=== PATIENT | male | born 1945 | race Caucasian/White ===

== ENCOUNTER → 2018-02-25 | Outpatient (CLI) | payer MEDICARE, BC ==
[~2018-02-25] MED LIST: ACET325T38 PO; AGM875T PO; AML2.5T PO; AMLO2.5T PO; CIPR-226 PO; CIPR500T4 PO; CIPR500T78 PO; DXCC100CRX; HYDR-3720 PO; HYDR-3876 PO; HYOS0.1216 PO; HYOS0.1217 PO; ONDA8TAB13 PO; OXYC-12 PO; PHEN-640 PO; PHEN200T27 PO; TMSL.4C PO; WRF2.5T; WRF2.5T PO
--- NOTE | 2018-02-25 13:20 | Diagnostic Imaging Report ---
INDICATION: Right leg pain. Right leg venous Doppler study was performed in the routine fashion with color flow Doppler and waveform analysis. FINDINGS: The right common femoral vein, superficial femoral vein, popliteal vein and visualized portion of the tibial veins show normal compressibility and venous flow patterns. There is normal augmentation. IMPRESSION: No evidence of deep vein thrombosis of the major veins of the right leg. Dictated by: Dictated on workstation # [id number]
== END ==
LOC: RAD 12:16
PROVIDERS: ATTEND Orthopaedic Surgery
DX: M79.661 Pain in right lower leg (principal)

== ENCOUNTER → 2018-03-02 | Outpatient (CLI) | payer MEDICARE, BC ==
--- NOTE | 2018-03-02 09:37 | Diagnostic Imaging Report ---
PROCEDURE: MRI right joint lower extremity without contrast. TECHNIQUE: Multiplanar, multisequence MR imaging of the right knee was performed without contrast. COMPARISON: None available. INDICATION: Right knee pain and swelling. FINDINGS: MENISCI Medial meniscus: Complex macerated tearing of the body and posterior horn of the medial meniscus. This includes a near-complete radial tearing at the junction of the body and posterior horn. The body of the medial meniscus is partially extruded into the gutter. Lateral meniscus: Degenerative free-edge truncation and tearing in the posterior horn of the lateral meniscus is seen. LIGAMENTS ACL: Intrasubstance mucoid degeneration of the ACL with partial-thickness tearing of the anterior insertional fibers. PCL: Intact. MCL: Intact. LCL: The lateral collateral ligamentous complex is intact. EXTENSOR MECHANISM The extensor mechanism is intact. CARTILAGE Medial compartment: Diffuse high-grade partial and full-thickness articular cartilage loss throughout the weightbearing aspect of the medial femoral condyle and opposing tibial plateau. There are scattered foci of subchondral bone marrow edema present. Lateral compartment: The lateral compartment articular cartilage is preserved without high-grade chondromalacia. Patellofemoral compartment: Partial-thickness fraying of the surface of the patella articular cartilage. BONE No fracture, stress fracture or osteonecrosis. SOFT TISSUE Small knee joint effusion with mild synovitis. A small Tafoya's cyst is also present. IMPRESSION: 1. Extensive complex tearing of the medial meniscus is likely degenerative in nature. 2. There is a broad area of high-grade partial and full-thickness articular cartilage loss throughout the medial compartment. 3. Focal degenerative free-edge truncation in the posterior horn of the lateral meniscus. 4. Intrasubstance mucoid degeneration with partial-thickness tearing of the anterior ACL. Dictated by: Dictated on workstation # [id number]
== END ==
LOC: RAD 07:10
PROVIDERS: ATTEND Nurse Practitioner Family
DX: S83.241A Other tear of medial meniscus, current injury, right knee, initial encounter (principal); S83.511A Sprain of anterior cruciate ligament of right knee, initial encounter; M17.11 Unilateral primary osteoarthritis, right knee
CPT/HCPCS: 73721

== ENCOUNTER 2019-03-03 05:51 | Outpatient (CLI) | payer MEDICARE, BC ==
[~2019-03-03] VITALS: Ht 180.3 cm; Wt 84.8 kg
[~2019-03-03 05:51] MED LIST changes: -AMLO2.5T PO; +AMLO2.5T4 PO
[2019-03-03] MEDS ORDERED: FINA5TAB6 PO (14:46)
== END 2019-03-03 14:48 | disposition home or self-care (01) ==
LOC: PREOP 05:51
PROVIDERS: ATTEND Surgery
DX: Z01.818 Encounter for other preprocedural examination (principal)

== ENCOUNTER → 2022-12-02 | Outpatient (CLI) | payer MEDICARE, BC ==
[~2022-12-02] MED LIST changes: +CATHETER FLUSH 10 ML SYR IVP PRN; +FINA5TAB6 PO
--- NOTE | 2022-12-03 13:49 | Diagnostic Imaging Report ---
INDICATION: Prostate carcinoma, initial staging. Patient was administered 9.8 mCi F-18 Pylarify intravenously in the left antecubital location and PET imaging was performed from the top of skull to mid thighs. Noncontrast CT was also performed for attenuation correction and anatomic correlation. Normal physiologic uptake is identified within the salivary glands as well as the liver and spleen as well as the gastrointestinal and genitourinary tract. No definite uptake is seen within thoracic, abdominal or pelvic lymph nodes. There is a small focus of abnormal uptake involving the anterior left para-midline aspect of the prostate gland. No suspicious osseous uptake is identified. Conventional CT demonstrates bilateral renal cysts. There is an IVC filter in place. There is uncomplicated sigmoid diverticulosis. IMPRESSION: Unremarkable PET Pylarify demonstrates abnormal solitary focus of uptake involving the left para-midline and anterior aspect of the prostate gland, suggestive of prostate neoplasm. No other areas of suspicious uptake are identified. There are no findings to suggest metastatic disease. Dictated by: Dictated on workstation # [id number]
== END ==
LOC: RAD 08:20
PROVIDERS: ATTEND Specialist
DX: C61 Malignant neoplasm of prostate (principal)
CPT/HCPCS: 78815; A9595

== ENCOUNTER 2022-12-16 12:36 | Outpatient (RCR) | payer MEDICARE, BC ==
[~2022-12-16 12:36] MED LIST changes: -CATHETER FLUSH 10 ML SYR IVP PRN
== END 2023-01-08 | disposition home or self-care (01) ==
LOC: ONC 12:36
PROVIDERS: ATTEND Radiology Radiation Oncology
DX: C61 Malignant neoplasm of prostate (principal); I10 Essential (primary) hypertension; Z90.49 Acquired absence of other specified parts of digestive tract; Z98.890 Other specified postprocedural states
CPT/HCPCS: 99205; 99215

== ENCOUNTER 2023-03-25 10:24 | Outpatient (RCR) | payer MEDICARE, BC | END 2023-04-10 | disposition home or self-care (01) | LOC: ONC 10:24 | PROVIDERS: ATTEND Radiology Radiation Oncology | DX: C61 Malignant neoplasm of prostate (principal); I10 Essential (primary) hypertension; K21.9 Gastro-esophageal reflux disease without esophagitis | CPT/HCPCS: 76873; G0463; 99212 ==

== ENCOUNTER 2023-04-16 05:28 | Outpatient (CLI) | payer MEDICARE, BC ==
[~2023-04-16] VITALS: Ht 180.3 cm; Wt 90.9 kg
[2023-04-18] MEDS ORDERED: OMEP20CA18 PO (12:51)
[2023-04-18] MEDS ORDERED: IRON1TAB89 PO (12:56)
[2023-04-18] MEDS ORDERED: ZINC10LO4 PO (12:56)
[2023-04-18] MEDS ORDERED: CYAN1TAB68 PO (12:56)
== END 2023-04-18 13:12 | disposition home or self-care (01) ==
LOC: PREOP 05:28
PROVIDERS: ATTEND Radiology Radiation Oncology
DX: Z01.818 Encounter for other preprocedural examination (principal)

== ENCOUNTER 2023-04-23 08:39 | Day surgery (SDC) | payer MEDICARE, BC ==
[2023-04-23] VITALS (11 sets, daily range): BP systolic 95–156; BP diastolic 62–104
[~2023-04-23] VITALS: Ht 180.3 cm; Wt 90.9 kg
[~2023-04-23 08:39] MED LIST changes: +CYAN1TAB68 PO; +IRON1TAB89 PO; +OMEP20CA18 PO; +ZINC10LO4 PO
--- NOTE | 2023-04-23 09:32 | Progress Note-Pre Operative ---
Pre-Operative Progress Note Date of Available H&P: Apr 08, 2023 Date H&P Reviewed: Apr 23, 2023 Time H&P Reviewed: 09:31 History & Physical: H&P Reviewed, No changes noted Pre-Operative Diagnosis: Prostate cancer cT1c, PSA 9 (on Proscar), Graeme 8 (4+4) LEIGH AMAYA MD Apr 23, 2023 09:32
[2023-04-23] MEDS ORDERED: ACET-11 PO (09:35)
[2023-04-23] MEDS ORDERED: CIPR-226 PO (09:35)
[2023-04-23] MEDS: LACTATED RINGERS 1,000 ML 1,000 ML IV PRN ×2 (09:37→11:40)
--- NOTE | 2023-04-23 09:38 | Discharge Inst-Simple/Standard ---
Discharge Inst-Standard Reconcile Patient Problems Problems Reviewed?: Yes Discharge Medications New, Converted or Re-Newed RX: Other (scripts called in 04/22/23 per [facility]) Patient Instructions/Follow Up Plan of Care/Instructions/FU: 1) To [facility] on Friday04/28/23 after 8 a.m. for choudhury removal. 2) One month post implant scan at [facility] 05/21/23 at 9:30 a.m. 3) One month post implant follow up with Dr. Frost 05/26/23 at 1:45 p.m. Activity as Tolerated: Yes Discharge Diet: No Restrictions Other Inst to Patient Please instruct patient on choudhury catheter care. He will come to [facility] on Friday04/28/23 after 8 a.m. for choudhury removal. LEIGH AMAYA MD Apr 23, 2023 09:38
[2023-04-23] MEDS ORDERED: FAMOTIDINE INJ 20MG/2ML VIAL ONE (09:49)
[2023-04-23] MEDS ORDERED: ONDANSETRON INJECTION 4 MG/2 ML (SDV) ONE ×2 (09:49→10:33)
[2023-04-23] MEDS ORDERED: ONDANSETRON INJECTION 4 MG/2 ML (SDV) IVP ONE (10:00)
[2023-04-23] MEDS ORDERED: FAMOTIDINE INJ 20MG/2ML VIAL IVP ONE (10:00)
[2023-04-23] MEDS ORDERED: fentaNYL INJECTION 100 MCG/2 ML VIAL ONE (10:33)
[2023-04-23] MEDS ORDERED: SEVOFLURANE (ULTANE) 15 ML INHAL SOLN ONE ×2 (10:33→11:49)
[2023-04-23] MEDS ORDERED: LIDOCAINE PF 2% 5 ML VIAL ONE (10:33)
[2023-04-23] MEDS ORDERED: proPOfol INJECTION 200 MG/20 ML VIAL IV ONE (10:33)
[2023-04-23] MEDS ORDERED: MIDAZOLAM INJ 2 MG/2 ML VIAL ONE (10:33)
[2023-04-23] MEDS ORDERED: GLYCOPYRROLATE INJ 0.2 MG/ML 2 ML VIAL ONE (11:16)
[2023-04-23] MEDS ORDERED: BACITRACIN OINTMENT 28 GM TUBE ONE (11:20)
[2023-04-23] MEDS ORDERED: BACITRACIN OINTMENT 28 GM TUBE TOP ONE (11:21)
--- NOTE | 2023-04-23 12:18 | Progress Note-Post Operative ---
Post-Operative Progess Note Surgeon (s)/Drafter Refrigeration (s) Surgeon LEIGH AMAYA MD Drafter Refrigeration: Valerie SAUCEDO MD Pre-Operative Diagnosis Prostate cancer cT1c, PSA 9 (on Proscar), Graeme 8 (4+4) Post-Operative Diagnosis Same as pre-op Procedure & Operative Findings Date of Procedure 04/23/23 Procedure Performed/Findings (1) 67% Cesium 131 permanent prostate seed implant (2) Injection of biodegradable prostate-rectal spacer utilizing the Barrigel system (3) Cystogram Prostate volume 24.7 cc Anesthesia Type General Estimated Blood Loss Estimated blood loss (mL): Minimal Specimens/Packing Specimens Removed N/A Packing: N/A LEIGH AMAYA MD Apr 23, 2023 12:18
--- NOTE | 2023-04-23 12:21 | Anesthesia-General Post-Op ---
General Patient Condition Mental Status/LOC: Same as Preop Cardiovascular: Satisfactory Nausea/Vomiting: Absent Respiratory: Satisfactory Pain: Controlled Complications: Absent Post Op Complications Complications None Follow Up Care/Instructions Patient Instructions None needed. Anesthesia/Patient Condition Patient Condition Patient is doing well, no complaints, stable vital signs, no apparent adverse anesthesia problems. No complications reported per nursing. DARON MIRZA CRNA Apr 23, 2023 12:20
[2023-04-23] MEDS ORDERED: ONDANSETRON INJECTION 4 MG/2 ML (SDV) IVP PRN (12:30)
[2023-04-23] MEDS ORDERED: morphine INJ 10 MG/ML 1ML (SYR OR VIAL) IVP ONE (12:30)
[2023-04-23] MEDS ORDERED: fentaNYL INJECTION 100 MCG/2 ML VIAL IVP ONE (12:30)
--- NOTE | 2023-04-24 09:47 | Diagnostic Imaging Report ---
INDICATION: Brachytherapy and cystography. Nine seconds of fluoroscopy time were utilized during the urological procedure with a total cumulative dose of 5.9 mGy. IMPRESSION: Fluoroscopy utilized during urological procedures. Dictated by: Dictated on workstation # [id number]
== END 2023-04-23 14:58 | disposition home or self-care (01) ==
LOC: SDC 08:39
PROVIDERS: ATTEND Radiology Radiation Oncology
DX: C61 Malignant neoplasm of prostate (principal)
CPT/HCPCS: 55874; 55876; 76000; 76965; 77290; 77318; 77332; 77370; 77470; 77778; 87081; C1715 ×2; C1889; C2643

== ENCOUNTER 2023-05-21 09:21 | Outpatient (RCR) | payer MEDICARE, BC ==
[~2023-05-21 09:21] MED LIST changes: +ACET-11 PO
== END 2023-06-10 | disposition home or self-care (01) ==
LOC: ONC 09:21
PROVIDERS: ATTEND Radiology Radiation Oncology
DX: C61 Malignant neoplasm of prostate (principal); I10 Essential (primary) hypertension; K21.9 Gastro-esophageal reflux disease without esophagitis
CPT/HCPCS: 77290

== ENCOUNTER → 2023-07-08 | Outpatient (CLI) | payer MEDICARE, BC | LOC: LAB 13:58 | PROVIDERS: ATTEND Specialist | DX: C61 Malignant neoplasm of prostate (principal) | CPT/HCPCS: 36415; 84153 ==

== ENCOUNTER → 2023-07-10 | Outpatient (RCR) | payer MEDICARE, BC ==
[~2023-07-10] MED LIST changes: +LEUPROLIDE 45 MG ELIGARD SQ SCH
== END | disposition home or self-care (01) ==
LOC: ONC 06-11 09:14
PROVIDERS: ATTEND Internal Medicine Hematology & Oncology
DX: Z51.0 Encounter for antineoplastic radiation therapy (principal); C61 Malignant neoplasm of prostate; I10 Essential (primary) hypertension; K21.9 Gastro-esophageal reflux disease without esophagitis
CPT/HCPCS: 77300; 77301; 77334; 77336; 77338; 77385; 77470; 84153; 96402; 99204